=== PATIENT | female | born 1955 | race Caucasian/White ===

== ENCOUNTER 2022-06-23 22:08 | Emergency (ER) | payer BC ==
[2022-06-23] MEDS ORDERED: Sodium Chloride 0.9% 1,000 ML IV ONE (22:43)
[2022-06-23 23:08] LABS: ESTIMATED GFR 94 mL/min (>60)
[2022-06-24] MEDS ORDERED: Potassium Chloride 20 MEQ Tab.ER PO ONE (01:02)
[2022-06-24] MEDS ORDERED: Sodium Chloride 0.9% 1,000 ML IV ONE (01:02)
[2022-06-24 01:14] LABS: HEMOGLOBIN A1C 6.2 % (<5.7)
== END 2022-06-24 02:45 | disposition home or self-care (01) ==
LOC: FB.ED 22:08
DX: E86.0 Dehydration (principal); E74.39 Other disorders of intestinal carbohydrate absorption; R53.83 Other fatigue; E87.6 Hypokalemia; Z20.822 Contact with and (suspected) exposure to COVID-19
CPT/HCPCS: 36415; 70450; 80053; 81001; 83036; 84443; 84484; 85025; 86140; 96360; 96361; 99284; 99285-25; A9270-GY; J7030; U0002

== ENCOUNTER 2022-06-27 16:17 | Emergency (ER) | payer BC, MEDICARE ==
[2022-06-27 16:47] LABS: ESTIMATED GFR 94 mL/min (>60)
== END 2022-06-27 17:33 ==
LOC: FB.ED 16:17
DX: I63.9 Cerebral infarction, unspecified (principal); I10 Essential (primary) hypertension
CPT/HCPCS: 36415; 71045; 80053; 84484; 85025; 85610; 85730; 93005; 93010; 99285